=== PATIENT | female | born 1995 | race Caucasian/White ===

== ENCOUNTER 2017-06-16 15:57 | Inpatient (IN) | payer MEDICAID, OTHER ==
[2017-06-18] MEDS ORDERED: OXYTOCIN/NORMAL SALINE 20 UNIT/1,000 ML RTUINJ IV PRN (06:21)
[2017-06-18] MEDS ORDERED: RINGERS SOLUTION,LACTATED 300 ML IV ONE (06:21)
[2017-06-18 06:47] LABS: ABSOLUTE EOSINOPHILS # (AUTO) 0.2 10^3/uL (0.0-0.6); ABSOLUTE LYMPHOCYTES (AUTO) 1.6 10^3/uL (0.5-4.7); ABSOLUTE NEUT (AUTO) 7.7 10^3/uL (1.7-8.2); BASOPHILS % (AUTO) 0.3 % (0-2); EOSINOPHILS % (AUTO) 1.7 % (0-6); HEMATOCRIT 33.4 % (36.0-47.0); HEMOGLOBIN 11.8 g/dL (12.0-15.5); LYMPHOCYTES % (AUTO) 15.4 % (13-45); MEAN CORPUSCULAR HEMOGLOBIN 26.6 pg (27.0-33.4); MEAN CORPUSCULAR HGB CONC 35.5 g/dL (32.0-36.0); MEAN CORPUSCULAR VOLUME 75 fl (80-97); MONOCYTES % (AUTO) 9.7 % (3-13); RED BLOOD COUNT 4.46 10^6/uL (3.72-5.28); RED CELL DISTRIBUTION WIDTH 13.6 % (11.5-14.0); SEGMENTED NEUTROPHILS % (AUTO) 72.9 % (42-78); WHITE BLOOD COUNT 10.6 10^3/uL (4.0-10.5)
[2017-06-18 06:54] LABS: APPEARANCE,URINE CLOUDY; BILIRUBIN,URINE NEGATIVE (NEGATIVE); GLUCOSE, URINE NEGATIVE (NEGATIVE); KETONES,URINE NEGATIVE (NEGATIVE); LEUKOCYTE ESTERASE,URINE LARGE (NEGATIVE); NITRITE,URINE NEGATIVE (NEGATIVE); PROTEIN,URINE NEGATIVE (NEGATIVE); URINE SPECIFIC GRAVITY 1.006; UROBILINOGEN,URINE NEGATIVE mg/dL (<2.0)
[2017-06-18 07:09] LABS: URINE BARBITURATES SCREEN NEGATIVE; URINE METHADONE SCREEN NEGATIVE; URINE OPIATES LOW NEGATIVE; URINE PHENCYCLIDINE SCREEN NEGATIVE
[2017-06-18] MEDS ORDERED: OXYTOCIN/NORMAL SALINE 20 UNIT/1,000 ML RTUINJ ONE (07:39)
[2017-06-18] MEDS: RINGERS SOLUTION,LACTATED 1,000 ML IV PRN ×2 (07:44→22:10)
--- NOTE | 2017-06-18 12:27 | L&D Progress Notes ---
PROGRESS NOTES Datetime Report Generated by CPN: 06/18/2017 12:26 PROGRESS NOTE Impression Other: IUP @ [id number] Procedures: Artificial ROM; Sterile Vag Exam Plan: Continue Present Management; Induction Informed Consent Obtained: Vaginal Delivery; Induction of Labor; Risks, Benefits and Alternatives Discussed Vital Signs : Reviewed; Within Normal Limits Comment: S: reports increased pain with contractions, desires epidural for pain control soon O: as stated above, pit @ 20mu/min A: IUP @ 41w1d IOL-stable, AROM-clear fluid tolerated procedure well P: continue IOL, epidural prn VAGINAL EXAM Dilatation: 4 Effacement: 90 Station: -2 Contractions: q2min MEMBRANES Membranes: Ruptured Membranes: Intact Amniotic Fluid Color: Clear FETUS A Monitoring: External US Decelerations: None FHR Category: Category I Presentation: Vertex SIGNATURE SIGNATURE: [id number] Assignment: Zoltan Looney DO Signature: with User ID: [email or web address] : with User ID: [email or web address]
[2017-06-18] MEDS ORDERED: PROMETHAZINE HCL INJ 25 MG/1 ML VIAL IV ONE (12:45)
[2017-06-18] MEDS ORDERED: NALBUPHINE HCL INJ 10 MG/1 ML AMPULE INJ ONE (12:45)
[2017-06-18] MEDS ORDERED: NALBUPHINE HCL INJ 10 MG/1 ML AMPULE ONE (12:48)
[2017-06-18] MEDS ORDERED: PROMETHAZINE HCL INJ 25 MG/1 ML VIAL ONE (12:48)
[2017-06-18] MEDS ORDERED: MISOPROSTOL 0.2 MG TABLET ONE (13:42)
[2017-06-18] MEDS ORDERED: EPHEDRINE SULFATE INJ 50 MG/1 ML AMPULE ONE ×2 (13:42→22:50)
[2017-06-18] MEDS ORDERED: LIDOCAINE 1% INJ-PF (10 MG/ML) 30 ML SDV ONE (13:43)
[2017-06-18] MEDS ORDERED: BENZOIN/ALOE VERA/STORAX/TOLU TINCTURE 60 ML TP PRN (13:43)
[2017-06-18] MEDS ORDERED: FENTANYL/BUPIVACAINE/NS/PF 200 MCG/100 ML RTUINJ EPI ONE (13:43)
[2017-06-18] MEDS ORDERED: BUPIVACAINE HCL 0.25 % INJ/PF (2.5 MG/1 ML) 30 ML VIAL ONE (13:43)
[2017-06-18] MEDS ORDERED: FENTANYL/BUPIVACAINE/NS/PF 200 MCG/100 ML RTUINJ EPI PRN (13:43)
[2017-06-18] MEDS ORDERED: BUPIVACAINE HCL 0.25 % INJ/PF (2.5 MG/1 ML) 30 ML VIAL INFIL ONE (13:43)
--- NOTE | 2017-06-18 16:54 | L&D Progress Notes ---
PROGRESS NOTES Datetime Report Generated by CPN: 06/18/2017 16:54 PROGRESS NOTE Impression Other: IOL-stable Procedures: Sterile Vag Exam Plan: Continue Present Management; Induction Informed Consent Obtained: Vaginal Delivery; Induction of Labor; Risks, Benefits and Alternatives Discussed Vital Signs : Reviewed Vital Signs Comments: mild range (two severe range BPs while patient was laying on BP cough Comment: S: reports increased perineal pressure O: as stated above, pit remains at 20mu/min, head asynclitic A: IUP @ [id number] P: continue IOL and repositioning to facilitate movement of head. Reassess as needed, Consider IUPC placement at next check. Discussed with Dr. Looney. VAGINAL EXAM Dilatation: 5 Effacement: 100 Station: -1 Contractions: q 1.5-3 min MEMBRANES Membranes: Ruptured Amniotic Fluid Color: Clear FETUS A Monitoring: External US Variability: Moderate 6-25bpm Accelerations: 15X15 Decelerations: Variable FHR Category: Category II FETUS C SIGNATURE: [id number] Assignment: Christopher Looney, DO Signature: with User ID: [email or web address] : with User ID: [email or web address]
[2017-06-18] MEDS ORDERED: DIPHENHYDRAMINE HCL 50 MG/ML VIAL IV ONE (20:16)
[2017-06-18] MEDS ORDERED: DIPHENHYDRAMINE HCL 50 MG/ML VIAL ONE (20:26)
[2017-06-18] MEDS ORDERED: CEFAZOLIN 2 GM/D5W RTU 2 GM/50 ML RTUPB IV ONE (22:36)
[2017-06-18] MEDS ORDERED: CITRIC ACID/SODIUM CITRATE ORAL SOLN 15 ML UDCUP ONE (22:36)
[2017-06-18] MEDS ORDERED: ACETAMINOPHEN 100 ML IV ONE (22:42)
[2017-06-18] MEDS ORDERED: PROPOFOL INJ 200 MG/20 ML VIAL IV ONE (22:50)
[2017-06-18] MEDS ORDERED: FENTANYL CITRATE INJ/PF 100 MCG/2 ML AMPUL ONE (22:50)
[2017-06-18] MEDS ORDERED: OXYTOCIN 10 UNIT/ML VIAL ONE (22:50)
[2017-06-18] MEDS ORDERED: MIDAZOLAM 2 MG/2 ML INJ ONE (22:51)
[2017-06-18] MEDS ORDERED: ONDANSETRON HCL INJ/PF 4 MG/2 ML SDV IV PRN (23:20)
[2017-06-18] MEDS ORDERED: FENTANYL CITRATE INJ/PF 100 MCG/2 ML AMPUL IV PRN ×3 (23:20)
[2017-06-18] MEDS ORDERED: PROMETHAZINE HCL INJ 25 MG/1 ML VIAL IV PRN (23:20)
[2017-06-18] MEDS ORDERED: MEPERIDINE HCL/PF INJ 25 MG/1 ML DISP.SYRIN IV PRN (23:20)
[2017-06-18] MEDS ORDERED: MORPHINE SULFATE 10 MG/ML INJ IV PRN (23:20)
[2017-06-18] MEDS ORDERED: DIPHENHYDRAMINE HCL 50 MG/ML VIAL IV PRN (23:20)
--- NOTE | 2017-06-19 00:52 | OPERATIVE REPORT E ---
Operative Report NAME: ELIZ MALONEY : 1995 AGE: 22Y DATE OF SURGERY: 06/18/2017 ROOM: LR200 PREOPERATIVE DIAGNOSES: 1. A 41 week 1 day intrauterine . 2. Active labor. 3. Nonreassuring heart tones. POSTOPERATIVE DIAGNOSES: 1. A 41 week 1 day intrauterine . 2. Active labor. 3. Nonreassuring heart tones. PROCEDURE PERFORMED: Primary low transverse section. SURGEON: Zoltan Looney D.O. CHIEF OF INTERNAL MEDICINE: None. ANESTHESIA: Spinal. COMPLICATIONS: None. PATHOLOGY: Placenta. ESTIMATED BLOOD LOSS: 600 mL. FINDINGS: 1. Viable male at 2311 hours on 06/18/17. Apgars 1 at one and 3 at five. Weight 7 lbs. 15 oz. 2. Normal appearing bilateral fallopian tubes and ovaries. DESCRIPTION OF PROCEDURE: Patient was taken to the operating room where her epidural anesthesia was not found to be working properly, so a spinal was placed by Anesthesia. She was then placed in the dorsal supine position with a leftward tilt upon the operating room table. She was then prepped and draped in normal sterile fashion. A scalpel was used to make a Pfannenstiel skin incision. The skin incision was carried down through the subcutaneous tissue to the layer of the fascia. The fascia was incised in the midline. Fascial incision was then extended bilaterally using the Bovie cautery. The superior facial edge was grasped with Anais clamps, elevated, and the rectus muscles dissected off sharply and bluntly. Attention was then turned to the inferior fascial edge, which was grasped with Anais clamps, elevated, and the rectus muscles dissected off sharply and bluntly. Rectus muscles were then in the midline, peritoneum identified, and entered bluntly with the surgeon's hands. Bladder blade was inserted. A scalpel was then used to make a low transverse hysterotomy incision. The infant was found to be in cephalic position, and delivered through the incision without difficulty and atraumatically. Nose and mouth were suctioned. Cord was clamped and cut. The was handed off to the waiting pediatricians. Cord blood was obtained. The placenta was then manually removed from the uterus. The uterus was exteriorized and cleared of all clots and debris. The hysterotomy incision was then reapproximated using 2 layers of 1-0 Vicryl in a running locking fashion. Following closure of the second layer, excellent hemostasis was noted. The uterus was then returned to the abdomen. Again, the hysterotomy incision was reinspected, found to have excellent hemostasis. Rectus muscles were reapproximated using 1-0 Vicryl absorbable sutures. The fascia was then closed using 1-0 Vicryl in a running locking fashion. Subcutaneous space was made hemostatic using Bovie. The skin was then closed with absorbable lai, covered with an OpSite and then with a pressure dressing. At this point in time, the procedure was terminated. All sponge, lap, and needle counts were correct x2. Patient tolerated the procedure well. Patient was taken to recovery room in stable condition. DICTATING PHYSICIAN: Zoltan Looney DO [id number] PHY#: [id number] ID: [id number] JOB#: [id number] ACCT: [id number] cc:Zoltan Looney D.O. >
[2017-06-19] MEDS ORDERED: ACETAMINOPHEN 325 MG TABLET PO PRN (00:53)
[2017-06-19] MEDS ORDERED: RINGERS SOLUTION,LACTATED 1,000 ML IV PRN (00:53)
[2017-06-19] MEDS ORDERED: MEASLES,MUMPS&RUBELLA VACC/PF 0.5 ML VIAL SUBCUT PRN (00:53)
[2017-06-19] MEDS ORDERED: DIPH/PERTUSS(ACELL)/TETANUS VAC/PF 0.5 ML SYR (>=10YO) IM PRN (00:53)
[2017-06-19] MEDS ORDERED: SIMETHICONE 80 MG TAB.CHEW PO PRN (00:53)
[2017-06-19] MEDS ORDERED: PROMETHAZINE HCL INJ 25 MG/1 ML VIAL IV PRN (00:53)
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
[2017-06-19] MEDS ORDERED: HYDROMORPHONE HCL INJ/PF 2 MG/ML AMPULE ONE (02:11)
--- NOTE | 2017-06-19 02:28 | Delivery Summary ---
Del Sum A-C Datetime Report Generated by CPN: 06/19/2017 02:28 DELIVERY PERSONNEL DELIVERY PERSONNEL: [id number] Delivery Doctor:: Zoltan Looney DO Anesthesiologist:: Nilay Malcolm MD DIRECTOR GLOBAL STRATEGIC PUBLISHER SALES:: Amy Pino CRNA Labor and Delivery Nurse:: Beverley Roberts RNwood scrap handler Nurse:: Kimberly Shine RN Neonatal Nurse Practitioner:: CIRO Reza Nursery Nurse:: Katy Serrano RN Production Control Pegboard Clerk/ENGINEER CHIEF: Ernestina Christopher CNA Production Control Pegboard Clerk/LIBRA: ST [facility] Additional Personnel: : Kimberlee Velazquez ST MATERNAL INFORMATION Delivery Anesthesia: Spinal Medications After Delivery: Pitocin Bolus-Please Comment; Pitocin Drip 20 Units/1000ml NSS Maternal Complications: Maternal Fever LABOR SUMMARY EDC: 06/10/2017 00:00 No. Babies in Womb: 1 Attempted: No Labor Anesthesia: Epidural LABOR INFORMATION Reason for Induction: Post Dates Onset of Labor: 06/18/2017 12:20 Oxytocin: Induction Group B Beta Strep: negative MEMBRANES Membranes Rupture Method: Artificial Rupture of Membranes: 06/18/2017 12:20 Length of Rupture (hr): 10.85 Amniotic Fluid Color: Clear Amniotic Fluid Amount: Scant STAGES OF LABOR Stage 3 hr: 0 Stage 3 min: 1 Total Time in Labor hr: 10 Total Time in Labor min: 52 CSECTION DELIVERY Primary Indication: Nonreassuring Status CSection Urgency: Non-Scheduled CSection Incidence: Primary Labor: Labor Elective: Nonelective CSection Incision: Lower Uterine Transverse Uterine Closure: Double-layer closure BABY A INFORMATION Infant Delivery Date/Time: 06/18/2017 23:11 Method of Delivery: Born in Route : No : N/A Forceps: N/A Vacuum Extraction: N/A Shoulder Dystocia : No PRESENTATION/POSITION BABY A Presentation: Cephalic Cephalic Presentation: Vertex PLACENTA INFORMATION BABY A Placenta Delivery Time : 06/18/2017 23:12 Placenta Method of Delivery: Manual Removal Placenta Status: Delivered SCORES BABY A Heart Rate 1 min: Slow, Below 100 bpm Resp Effort 1 min: Absent Reflex Irritability 1 min: No Response Muscle Tone 1 min: Flaccid Color 1 min: Blue/Pale SCORE 1 MIN: 1 Heart Rate 5 min: >100 bpm Resp Effort 5 min: Slow, Irregular Reflex Irritability 5 min: Grimace Muscle Tone 5 min: Some Flexion of Extremities Color 5 min: Body [place], Extremities Blue SCORE 5 MIN: 6 Heart Rate 10 min: >100 bpm Resp Effort 10 min: Good Cry Reflex Irritability 10 min: Cough or Sneeze or Pulls Away Muscle Tone 10 min: Some Flexion of Extremities Color 10 min: Body [place], Extremities Blue SCORE 10 MIN: 8 INFANT INFORMATION BABY A Gestational Age at Delivery: 41.1 Gestational Status: Late Term- 41- 41.6 Weeks Infant Outcome : Liveborn Infant Condition : Stable Sex: Male IDENTIFICATION BABY A Verification Date/Time: 06/18/2017 23:25 ID Band Number: [id number] Mother's Name Verified: Yes Infant RN Verifying Infant: LONG Butcher Additional Verifying Personnel: A Christopher, ENGINEER CHIEF WEIGHT/LENGTH BABY A Birthweight (gm): 3594 Weight (lb): 7 Infant Weight (oz): 15 Length (in): 21.00 Infant Length (cm): 53.34 CORD INFORMATION BABY A No. Cord Vessels: 2 Nuchal Cord : N/A Cord Blood Taken: Yes-For Eval (Mom's Blood Type - or O+) Infant Suction: Mouth; Nose ASSESSMENT BABY A Complications: Decreased Variability; Extended Tachycardia; Multiple Late Decels Physical Findings at Delivery: Molding of the Head Skin to Skin: No Infant Care By: RUI Persaud Transferred To: NICU BABY B INFORMATION : N/A SIGNATURES Signature: with User ID: [email or web address]
[2017-06-19] MEDS ORDERED: OXYTOCIN/NORMAL SALINE 20 UNIT/1,000 ML RTUINJ INJ PRN (02:35)
[2017-06-19] MEDS ORDERED: INFLUENZA ADLT QUAD (36MOS+) 2017-18 VAC 0.5 ML SYR IM PRN (02:46)
[2017-06-19] MEDS ORDERED: HYDROMORPHONE HCL INJ/PF 2 MG/ML AMPULE IV PRN (03:00)
[2017-06-19] MEDS ORDERED: RINGERS SOLUTION,LACTATED 1,000 ML IV SCH (03:00)
[2017-06-19 07:34] LABS: HEMATOCRIT 27.7 % (36.0-47.0); HGB HCT DIFFERENCE 1.4; MEAN CORPUSCULAR HEMOGLOBIN 26.3 pg (27.0-33.4); MEAN CORPUSCULAR VOLUME 75 fl (80-97); RED BLOOD COUNT 3.68 10^6/uL (3.72-5.28); RED CELL DISTRIBUTION WIDTH 13.5 % (11.5-14.0); WHITE BLOOD COUNT 19.8 10^3/uL (4.0-10.5)
[2017-06-19 07:35] LABS: HEMOGLOBIN 9.7 g/dL (12.0-15.5)
--- NOTE | 2017-06-19 09:23 | PDOC PROGRESS REPORT ---
Subjective-OB Subjective: Post Delivery Day: 22 year old. Denies any needs at this time Physical Exam (OB) Vital Signs: Temp Pulse Resp BP Pulse Ox 99.4 F 77 14 117/79 98 06/19/17 08:08 06/19/17 08:08 06/19/17 08:08 06/19/17 08:08 06/19/17 08:08 Intake & Output 06/18/17 06/19/17 06/20/17 06:59 06:59 06:59 Intake Total 100 Output Total 750 Balance -650 Weight 76.2 kg - Dressing Removed: No Incision: Dressing Closure Type: Sutures - Lochia Lochia Amount: Scant < 10 ml Lochia Color: Rubra/Red - Abdomen Description: Tender, Soft Hernia Present: No Bowel Sounds: Normoactive Flatus Presence: Absent Stool: No Fundal Description: Firm, Midline Fundal Height: u/u - u/2 Objective-Diagnostic Laboratory: 06/19/17 07:11 06/19/17 07:11 WBC 19.8 H RBC 3.68 L Hgb 9.7 L D Hct 27.7 L MCV 75 L MCH 26.3 L MCHC 35.0 RDW 13.5 Plt Count 154
[2017-06-19] MEDS: PRENATAL VITAMIN W-O CA NO5/FE FUMARATE/FA CAPSULE PO SCH (09:46)
[2017-06-19] MEDS: DOCUSATE SODIUM 100 MG CAPSULE PO SCH ×2 (09:46→18:22)
[2017-06-19] MEDS: OXYCODONE-ACETAMINOPHEN 5-325 MG TABLET PO PRN ×3 (09:47→20:34)
[2017-06-20] MEDS: OXYCODONE-ACETAMINOPHEN 5-325 MG TABLET PO PRN ×4 (00:37→16:41)
[2017-06-20] MEDS ORDERED: AMPICILLIN SOD/SULBACTAM 3 GM VIAL IV PRN (00:37)
[2017-06-20 08:44] LABS: HEMATOCRIT 29.4 % (36.0-47.0); HEMOGLOBIN 9.9 g/dL (12.0-15.5); HGB HCT DIFFERENCE 0.3; MEAN CORPUSCULAR HEMOGLOBIN 25.8 pg (27.0-33.4); MEAN CORPUSCULAR HGB CONC 33.8 g/dL (32.0-36.0); MEAN CORPUSCULAR VOLUME 76 fl (80-97); RED BLOOD COUNT 3.85 10^6/uL (3.72-5.28); RED CELL DISTRIBUTION WIDTH 13.9 % (11.5-14.0); WHITE BLOOD COUNT 14.4 10^3/uL (4.0-10.5)
--- NOTE | 2017-06-20 09:05 | PDOC PROGRESS REPORT ---
Subjective-OB Subjective: Post Delivery Day: 2 22 year old. Denies any needs at this time, states lochia is stable, pain well controlled, voiding without difficulty. Baby is in NICU pt desires to stay today , passing gas tolerating diet Physical Exam (OB) Vital Signs: Temp Pulse Resp BP Pulse Ox 99 F 72 18 117/69 98 06/20/17 08:00 06/20/17 04:28 06/20/17 04:28 06/20/17 04:28 06/20/17 04:28 Intake & Output 06/19/17 06/20/17 06/21/17 06:59 06:59 06:59 Intake Total 100 1200 Output Total 750 1510 Balance -650 -310 - PIH/Pre-Eclampsia DTR's: 2 + Clonus: Negative Headache: Absent Epigastric Pain: No Visual Changes: No - Dressing Removed: No Incision: Dressing Closure Type: Sutures - Lochia Lochia Amount: Small 10-25 ml Lochia Color: Rubra/Red - Abdomen Description: Tender, Soft, Round Hernia Present: No Fundal Description: Firm, Midline Fundal Height: u/u - u/2 Objective-Diagnostic Laboratory: 06/20/17 07:56 06/20/17 07:56 WBC 14.4 H RBC 3.85 Hgb 9.9 L Hct 29.4 L MCV 76 L MCH 25.8 L MCHC 33.8 RDW 13.9 Plt Count 192 Assessment and Plan(PN) - Assessment and Plan (1) Acute blood loss anemia Is this a current diagnosis for this admission?: Yes Plan: ferrous sulfate increase dietary iron (2) Delivery by emergency caesarean section Is this a current diagnosis for this admission?: Yes Plan: routine post op care anticipate d/c home tomorrow - Time Spent with Patient Time with patient: Less than 15 minutes Critical Time spent with patient: Less than 15 minutes Medications reviewed and adjusted accordingly: Yes - Disposition Anticipated Discharge: Home Within: within 24 hours
[2017-06-20] MEDS: AMPICILLIN SODIUM/SULBACTAM NA 3 GM in NORMAL SALINE 100 ML IV SCH ×2 (10:29→17:20)
[2017-06-20] MEDS: PRENATAL VITAMIN W-O CA NO5/FE FUMARATE/FA CAPSULE PO SCH (10:31)
[2017-06-20] MEDS: DOCUSATE SODIUM 100 MG CAPSULE PO SCH ×2 (10:32→17:21)
[2017-06-20] MEDS: IBUPROFEN 800 MG TABLET PO SCH (21:08)
[2017-06-21] MEDS: OXYCODONE-ACETAMINOPHEN 5-325 MG TABLET PO PRN (02:11)
[2017-06-21] MEDS: IBUPROFEN 800 MG TABLET PO SCH ×2 (05:46→15:19)
[2017-06-21] MEDS: DOCUSATE SODIUM 100 MG CAPSULE PO SCH ×2 (09:19→17:47)
[2017-06-21] MEDS: PRENATAL VITAMIN W-O CA NO5/FE FUMARATE/FA CAPSULE PO SCH (09:19)
--- NOTE | 2017-06-21 13:14 | PDOC DISCHARGE SUMMARY ---
Final Diagnosis Discharge Date: 06/21/17 - Final Diagnosis (1) Acute blood loss anemia Is this a current diagnosis for this admission?: Yes (2) Delivery by emergency caesarean section Is this a current diagnosis for this admission?: Yes (3) Non-reassuring electronic monitoring tracing Is this a current diagnosis for this admission?: Yes Discharge Data - Discharge Medication Home Medications: Vit/Iron Fum/Folic AC [ Tablet] 1 each PO DAILY 06/18/17 Reason(s) for Admission: Induction of Labor Procedures: NST Intrapartum Procedure(s): : Low Cervical, Transverse - Diagnosis Test Laboratory: Temp Pulse Resp BP Pulse Ox 97.6 F 67 16 114/72 100 06/21/17 07:54 06/21/17 07:54 06/21/17 07:54 06/21/17 07:54 06/21/17 07:54 06/18/17 06/18/17 06/19/17 06:22 06:37 07:11 RBC 4.46 3.68 L Hgb 11.8 L 9.7 L D Hct 33.4 L 27.7 L Urine Opiates Screen NEGATIVE 06/20/17 07:56 RBC 3.85 Hgb 9.9 L Hct 29.4 L Urine Opiates Screen - Discharge information/Instructions Discharge Activity: Pelvic Rest Discharge Diet: Regular Disposition: HOME, SELF-CARE Follow up with: [facility] in: 5, Days
[2017-06-21 17:03] VITALS: BP 125/72
== END 2017-06-21 18:35 | disposition home or self-care (01) | DRG 765 ==
LOC: EDSTATUS 16:00 → LR 06-18 06:06 → 2S 06-19 01:46
PROVIDERS: ADMIT Obstetrics & Gynecology; ATTEND Obstetrics & Gynecology
PROC: 10D00Z1 Extraction of Products of Conception, Low, Open Approach (ICD-10-PCS; principal; 2017-06-19)
PROC: 3E0234Z Introduction of Serum, Toxoid and Vaccine into Muscle, Percutaneous Approach (ICD-10-PCS; 2017-06-21)
DX: O48.0 Post-term pregnancy (principal); O75.2 Pyrexia during labor, not elsewhere classified; D62 Acute posthemorrhagic anemia; O76 Abnormality in fetal heart rate and rhythm complicating labor and delivery; Z3A.41 41 weeks gestation of pregnancy; Z37.0 Single live birth; O69.89X0 Labor and delivery complicated by other cord complications, not applicable or unspecified; O90.81 Anemia of the puerperium; Z23 Encounter for immunization
CPT/HCPCS: 1961; 36415; 80307; 81005; 85025; 85027; 86592; 86850; 86900; 86901; 88307; 90686; 94760; 94799; J0131; J0295; J0690; J1170; J1200; J2250; J2300; J2550; J2590; J2704; J3010; J3490; J7120